=== PATIENT | female | born 1950 | race Caucasian/White ===

== ENCOUNTER 2021-11-10 10:41 | Inpatient (IN) | payer OTHER ==
[~2021-11-10] VITALS: Ht 162.6 cm; Wt 68.7 kg
[2021-11-10 10:45] VITALS: BP_SYST 160
--- NOTE | 2021-11-10 10:55 | NUR ---
Pt ROBERTH ACLTray coming from home due to c/o ALOC. Pt lives with sister named Ruthie , who states pt is altered and not finishing her sentences. Currently pt is A&Ox3. Answering all questions appropiately. Pupils PERRLA. Connected to case monitor and VSS besides O2 which is at 92% and placed pt on NC running at 2L/min and now O2 saturation is at 97%. SKin intact. No chest pain and no sob. Denies n/v. Negative for stroke symptoms. Alletgic to Sulfa. Has hx of DM, HTN, and Renal failure. Pt has left upper fistual bruit and thrill present. Bed in lowest position.
--- NOTE | 2021-11-10 10:58 | NUR ---
Received dialysis tx MWF and last dialysis tx was yesterday. Pt states 2L of fluids was removed.
--- NOTE | 2021-11-10 11:23 | NUR ---
# 20 gauge angiocath placed to right hand. Use of asceptic technique. Opsite placed over site. Blood return noted. Blood for lab drawn from site. Flushed with 10 cc of normal saline. No evidence of infiltration noted. Patient tolerated well.
--- NOTE | 2021-11-10 11:32 | NUR ---
ER at bedside examining patient.
[2021-11-10 11:43] LABS: BASOPHILS # (AUTO) 0.1 K/uL (0.0-0.2); BASOPHILS % (AUTO) 1.2 % (0.0-2.0); EOSINOPHILS % (AUTO) 0.7 % (0.0-4.0); HEMATOCRIT 27.7 % (36-48); HEMOGLOBIN 9.5 g/dL (12.0-16.0); LYMPHOCYTES # (AUTO) 1.2 K/uL (1.0-5.5); LYMPHOCYTES % (AUTO) 23.1 % (20.5-51.5); MEAN CORPUSCULAR HEMOGLOBIN 32 pg (27-31); MEAN CORPUSCULAR HGB CONC 34 % (32-36); MEAN CORPUSCULAR VOLUME 92 fL (79.0-98.0); MONOCYTES # (AUTO) 0.4 K/uL (0.0-1.0); MONOCYTES % (AUTO) 8.4 % (1.7-9.3); NEUTROPHILS # (AUTO) 3.5 K/uL (1.8-7.7); NEUTROPHILS % (AUTO) 66.6 % (40.0-70.0); PLATELET COUNT (AUTO) 93 K/uL (130-430); RED BLOOD CELL COUNT(AUTO) 3.02 MIL/uL (4.2-6.2); WHITE BLOOD COUNT (AUTO) 5.2 K/uL (4.8-10.8)
--- NOTE | 2021-11-10 11:46 | NUR ---
Covid swab done and sent to lab.
--- NOTE | 2021-11-10 11:48 | NUR ---
Chest X-Ray being done at bedside.
--- NOTE | 2021-11-10 12:04 | NUR ---
EKG performed at by Rakel RUBI. Physician given copy of EKG for review.
[2021-11-10 12:24] LABS: SODIUM SERUM 133 mmol/L (136-145)
[2021-11-10 12:25] LABS: CHLORIDE 94 mmol/L (98-107); POTASSIUM 4.9 mmol/L (3.5-5.1)
[2021-11-10 12:36] LABS: ALANINE AMINOTRANSFERASE 20 U/L (12-78); ALBUMIN 3.4 g/dL (3.4-4.8); ANION GAP 3 (5-15); ASPARTATE AMINOTRANSFERASE 17 U/L (10-37); CALCIUM 8.6 mg/dL (8.4-11.0); CREATININE 5.36 mg/dL (0.55-1.30); GLUCOSE 190 mg/dL (70-99); TOTAL BILIRUBIN 0.4 mg/dL (0.0-1.0); UREA NITROGEN, BLOOD 29 mg/dL (8-21)
[2021-11-10 12:37] LABS: GFR AFRICAN AMERICAN 10 mL/min (>90)
[2021-11-10 12:38] LABS: ALCOHOL, BLOOD < 3 mg/dL (<10)
--- NOTE | 2021-11-10 12:41 | NUR ---
Patient transported to radiology via gurney, accompanied by die maintenance technician.
[2021-11-10] MEDS ORDERED: MONT-40 PO (12:51)
[2021-11-10] MEDS ORDERED: INSU100V SQ (12:51)
[2021-11-10] MEDS ORDERED: DIPH25CA83 PO (12:51)
[2021-11-10] MEDS ORDERED: NOR10 PO (12:51)
[2021-11-10] MEDS ORDERED: HYDR100T25 PO (12:51)
[2021-11-10] MEDS ORDERED: GLIP5TAB26 PO (12:51)
[2021-11-10] MEDS ORDERED: SUCR1TAB78 PO (12:51)
[2021-11-10] MEDS ORDERED: LISI30TA36 PO (12:51)
[2021-11-10] MEDS ORDERED: LYR50 PO (12:51)
[2021-11-10] MEDS ORDERED: URSO500T PO (12:51)
[2021-11-10] MEDS ORDERED: LEVO125T8 PO (12:51)
[2021-11-10] MEDS ORDERED: LIP40 PO (12:51)
[2021-11-10] MEDS ORDERED: PRO40 PO (12:51)
[2021-11-10] MEDS ORDERED: TRAM50TA2 PO (12:51)
[2021-11-10] MEDS ORDERED: LOSA100T3 PO (12:51)
[2021-11-10] MEDS ORDERED: METO-290 PO (12:51)
[2021-11-10] MEDS ORDERED: ITRA100C3 PO (12:51)
[2021-11-10] MEDS ORDERED: NEPH PO (12:51)
[2021-11-10] MEDS ORDERED: LABE200T6 PO (12:51)
--- NOTE | 2021-11-10 12:52 | NUR ---
Returned from radiology, back to [facility].
--- NOTE | 2021-11-10 12:52 | NUR ---
Medication reconciliation completed with information provided by sister of pt. Any prior medication reconciliation on file was reviewed and corrected.
[2021-11-10] MEDS ORDERED: NACL 0.9% 1,000 ML IV ONE (13:15)
--- NOTE | 2021-11-10 13:23 | NUR ---
NS initiated running bolus. Pt has no c/o.
--- NOTE | 2021-11-10 16:54 | NUR ---
Patient will be admitted to care of Dr. Barnes. Admitted to Tele unit. Will go to room 119A. Belongings list completed. Complete and up to date summary report printed. SBAR report to be given at bedside with opportunity for questions.
--- NOTE | 2021-11-10 17:18 | NUR ---
received report from FULL DECATOR OPERATOR using SBAR method, @ 1719, patient is awake, alert and conversant.checked patient vital signs blood pressure 172/56, heart rate 60, oxygen saturation 99 and temperature 97.9, no signs of acute distress noted at this time, will continue to monitor.
[2021-11-10 17:23] VITALS: BP_SYST 172
[2021-11-10 20:00] VITALS: BP_SYST 128
[2021-11-10] MEDS: PIPERACILLIN/TAZO 2.25G/DEX-IS 50 ML IV SCH (21:18)
--- NOTE | 2021-11-10 23:34 | NUR ---
Patient in bed. No acute distress noted.. Patient has concerns about her dialysis schedule. This nurse will call the in the a.m.
[2021-11-11 00:28] VITALS: BP_SYST 143
--- NOTE | 2021-11-11 04:32 | NUR ---
Consult called for Dr. Yu, spoke with Hayde via answering service.
[2021-11-11] MEDS: PIPERACILLIN/TAZO 2.25G/DEX-IS 50 ML IV SCH ×3 (05:40→18:03)
[2021-11-11 07:45] LABS: CALCIUM 8.6 mg/dL (8.4-11.0); CREATININE 6.76 mg/dL (0.55-1.30); POTASSIUM 4.4 mmol/L (3.5-5.1); TOTAL BILIRUBIN 0.5 mg/dL (0.0-1.0)
[2021-11-11 07:56] LABS: BASOPHILS # (AUTO) 0.1 K/uL (0.0-0.2); BASOPHILS % (AUTO) 1.1 % (0.0-2.0); EOSINOPHILS # (AUTO) 0.1 K/uL (0.0-0.4); EOSINOPHILS % (AUTO) 0.8 % (0.0-4.0); HEMATOCRIT 26.5 % (36-48); HEMOGLOBIN 9.1 g/dL (12.0-16.0); LYMPHOCYTES # (AUTO) 1.5 K/uL (1.0-5.5); LYMPHOCYTES % (AUTO) 24.4 % (20.5-51.5); MEAN CORPUSCULAR HEMOGLOBIN 32 pg (27-31); MEAN CORPUSCULAR HGB CONC 34 % (32-36); MEAN CORPUSCULAR VOLUME 92 fL (79.0-98.0); MONOCYTES # (AUTO) 0.6 K/uL (0.0-1.0); MONOCYTES % (AUTO) 10.1 % (1.7-9.3); NEUTROPHILS # (AUTO) 3.9 K/uL (1.8-7.7); NEUTROPHILS % (AUTO) 63.6 % (40.0-70.0); PLATELET COUNT (AUTO) 85 K/uL (130-430); RED BLOOD CELL COUNT(AUTO) 2.88 MIL/uL (4.2-6.2); RED CELL DISTRIBUTION WIDTH 14.9 % (9.0-15.0); WHITE BLOOD COUNT (AUTO) 6.1 K/uL (4.8-10.8)
[2021-11-11 08:00] VITALS: BP_SYST 145
--- NOTE | 2021-11-11 11:31 | NUR ---
CONSULTATION PAGED REASON FOR CONSULTATION:ALOC WAS CONSULT CALLED?Y -PERSON WHO WAS NOTIFIED:TEXT MESSAGED CONSULTING PHYSICIAN:DIMITRY PRATT LICENSED CERTIFIED ORTHOTIST SPECIALTY:NEURO LICENSED CERTIFIED ORTHOTIST PHONE NUMBER:[phone] REQUESTING PHYSICIAN:ROM BLANCA
[2021-11-11 12:00] VITALS: BP_SYST 140
[2021-11-11 16:00] VITALS: BP_SYST 151
[2021-11-11] MEDS ORDERED: DEXTROSE 50%-WATER 50 ML DISP.SYRIN IVP PRN (16:30)
[2021-11-11] MEDS ORDERED: D5W 1,000 ML IV PRN (16:30)
[2021-11-11] MEDS ORDERED: GLUCOSE (DEXTROSE) ORAL GEL -Adults PO PRN (16:30)
--- NOTE | 2021-11-11 20:00 | NUR ---
Received report from day shift. Pt is aox4 awake sitting up in bed. No s/s of respiratory distress. Breathing even and unlabored. IV site intact and patent with fluids running tko. Fall and safety precautions in place with bed in lowest position, bed alarm on, and call light within reach
[2021-11-11] MEDS: INSULIN LISPRO SLIDING SCALE 100 UNITS/ML VIAL (humaLOG) SUBCUT PRN (22:17)
[2021-11-11 22:26] VITALS: BP_SYST 169
[2021-11-11 22:28] VITALS: BP_SYST 169
[2021-11-12] VITALS: BP_SYST 172
[2021-11-12] MEDS: PIPERACILLIN/TAZO 2.25G/DEX-IS 50 ML IV SCH ×2 (02:39→12:09)
[2021-11-12 08:00] VITALS: BP_SYST 162
[2021-11-12 08:39] LABS: CALCIUM 8.7 mg/dL (8.4-11.0); CREATININE 4.77 mg/dL (0.55-1.30); PHOSPHORUS 4.1 mg/dL (2.7-4.5); POTASSIUM 4.6 mmol/L (3.5-5.1)
[2021-11-12 08:57] LABS: BASOPHILS % (AUTO) 0.8 % (0.0-2.0); EOSINOPHILS # (AUTO) 0.1 K/uL (0.0-0.4); EOSINOPHILS % (AUTO) 1.4 % (0.0-4.0); HEMATOCRIT 27.2 % (36-48); HEMOGLOBIN 9.3 g/dL (12.0-16.0); LYMPHOCYTES # (AUTO) 1.2 K/uL (1.0-5.5); LYMPHOCYTES % (AUTO) 24.1 % (20.5-51.5); MEAN CORPUSCULAR HEMOGLOBIN 31 pg (27-31); MEAN CORPUSCULAR HGB CONC 34 % (32-36); MEAN CORPUSCULAR VOLUME 92 fL (79.0-98.0); MONOCYTES # (AUTO) 0.6 K/uL (0.0-1.0); MONOCYTES % (AUTO) 11.9 % (1.7-9.3); NEUTROPHILS # (AUTO) 3.1 K/uL (1.8-7.7); NEUTROPHILS % (AUTO) 61.8 % (40.0-70.0); PLATELET COUNT (AUTO) 76 K/uL (130-430); RED BLOOD CELL COUNT(AUTO) 2.97 MIL/uL (4.2-6.2); WHITE BLOOD COUNT (AUTO) 5.1 K/uL (4.8-10.8)
[2021-11-12 12:00] VITALS: BP_SYST 157
[2021-11-12] MEDS: INSULIN LISPRO SLIDING SCALE 100 UNITS/ML VIAL (humaLOG) SUBCUT PRN (12:11)
[2021-11-12 16:00] VITALS: BP_SYST 152
[2021-11-12 17:09] VITALS: BP_SYST 152
== END 2021-11-12 18:19 | disposition home or self-care (01) | DRG 682 ==
LOC: SED 10:41 → STU 16:30
PROVIDERS: ADMIT Internal Medicine; ATTEND Internal Medicine
PROC: 5A1D70Z Performance of Urinary Filtration, Intermittent, Less than 6 Hours Per Day (ICD-10-PCS; principal; 2021-11-11)
DX: I12.0 Hypertensive chronic kidney disease with stage 5 chronic kidney disease or end stage renal disease (principal); G93.41 Metabolic encephalopathy; N18.6 End stage renal disease; N18.9 Chronic kidney disease, unspecified; Z99.2 Dependence on renal dialysis; E11.22 Type 2 diabetes mellitus with diabetic chronic kidney disease; Z20.822 Contact with and (suspected) exposure to COVID-19; Z88.2 Allergy status to sulfonamides; Z88.8 Allergy status to other drugs, medicaments and biological substances
CPT/HCPCS: 36415; 70450-TC; 71045; 76376; 80048; 80053; 82140; 82962; 83036; 83735; 84100; 84484; 85025; 87040; 87081; 90935; 93005; 96360; 99285; G0378; G0482; J2543